=== PATIENT | female | born 1955 | race Caucasian/White ===

== ENCOUNTER 2024-06-25 11:16 | Emergency (ER) | payer BC ==
[~2024-06-25] VITALS: Ht 175.3 cm; Wt 65.8 kg
[2024-06-25] MEDS ORDERED: EZALLOR SPRINKLE5 MG (11:39)
[2024-06-25] MEDS ORDERED: LEVOTHYROXINE25 MCG (11:40)
[2024-06-25] MEDS ORDERED: FOSAMAX70 MG PO (11:40)
[2024-06-25] MEDS ORDERED: ZESTRIL10 M1 PO (11:40)
[2024-06-25] MEDS ORDERED: KETOROLAC TROMETHAMINE 30 MG VIAL IV ONE (14:15)
== END 2024-06-25 15:28 | disposition home or self-care (01) ==
LOC: ER 11:16
DX: M12.561 Traumatic arthropathy, right knee (principal); W06.XXXA Fall from bed, initial encounter; Y93.89 Activity, other specified; Y92.013 Bedroom of single-family (private) house as the place of occurrence of the external cause